=== PATIENT | male | born 1970 | race Two or more races ===

== ENCOUNTER 2022-09-19 08:58 | Inpatient (IN) | payer MEDICAID ==
[~2022-09-19] VITALS: Ht 175.3 cm; Wt 96.3 kg
[2022-09-19] MEDS ORDERED: FOLIC ACID 1 MG TAB PO ONE (09:45)
[2022-09-19] MEDS ORDERED: THIAMINE 100mg/ml INJ (200mg/2ml VIAL) IV ONE (09:45)
[2022-09-19] MEDS ORDERED: chlordiazePOXIDE HCL 25 MG CAP PO ONE (09:45)
[2022-09-19] MEDS ORDERED: LORazepam 2MG/ML-1ML VIAL IV ONE (09:45)
[2022-09-19 09:50] LABS: Basophils # (auto) 0.1 10 ^3/uL (0-0.2); Basophils % (auto) 1.3 % (0.0-2.0); Eosinophils # (auto) 0.1 10 ^3/uL (0-0.8); Eosinophils % (auto) 0.8 % (0.0-7.0); Hematocrit 48.3 % (41.0-53.0); Hemoglobin 16.8 g/dL (13.5-17.5); Lymphocytes # (auto) 1.1 10 ^3/uL (0.4-5.4); Lymphocytes % (auto) 16.4 % (10.0-50.0); Mean Corpuscular Hemoglobin 32.9 pg (28.0-32.0); Mean Corpuscular Hgb Conc. 34.7 g/dL (32.0-36.0); Mean Corpuscular Volume 94.9 fL (80.0-100.0); Monocytes # (auto) 0.7 10 ^3/uL (0-1.3); Monocytes % (auto) 10.4 % (0.0-12.0); Neutrophils % (auto) 71.1 % (37.0-80.0); Red Blood Cells 5.09 10^6/uL (4.5-5.90); Red Cell Distribution Width 13.6 % (11.8-14.3)
[2022-09-19] MEDS ORDERED: levETIRAcetam 500 MG TAB PO ONE (10:00)
[2022-09-19 10:30] LABS: Albumin 4.7 g/dL (3.4-5.0); Anion Gap 7 (5-15); Blood Alcohol < 3.0 mg/dL (0-5); Blood Urea Nitrogen 5 mg/dL (7-18); Calcium 8.7 mg/dL (8.5-10.1); Carbon Dioxide 27 mmol/L (21-32); Chloride 96 mmol/L (98-107); Glucose 172 mg/dL (74-106); Potassium 3.1 mmol/L (3.5-5.1); Sodium 130 mmol/L (136-145)
[2022-09-19 10:34] LABS: Alanine Aminotransferase 55 U/L (16-61); Alkaline Phosphatase 127 U/L (45-117); Aspartate Aminotransferase 76 U/L (15-37); Bilirubin, Total 2.2 mg/dL (0.2-1.0); GFR African American 124 mL/min; GFR Non-African American 103 mL/min; Total Protein 8.3 g/dL (6.4-8.2)
[2022-09-19] MEDS ORDERED: POTASSIUM CHL 20 Meq TABLET PO ONE (10:45)
[2022-09-19 10:49] LABS: Magnesium 1.6 mg/dL (1.6-2.6); Phosphorus 1.2 mg/dL (2.5-4.90)
[2022-09-19] MEDS ORDERED: NITROGLYCERIN 0.4 MG SL TAB SL PRN (11:45)
[2022-09-19] MEDS ORDERED: LORazepam 2MG/ML-1ML VIAL IV PRN (11:45)
[2022-09-19] MEDS ORDERED: ACETAMINOPHEN 325 MG TAB PO PRN (11:45)
[2022-09-19] MEDS ORDERED: MORPHINE SULFATE INJ 2 MG/ml SYRG IV PRN (11:45)
[2022-09-19] MEDS: SODIUM CHLORIDE 0.9% 1,000 ML IV SCH ×3 (12:58→23:06)
[2022-09-19] MEDS: LACTATED RINGER'S 1,000 ML IV ONE ×2 (12:58→13:08)
[2022-09-19] MEDS ORDERED: METOPROLOL TARTRATE 25 MG TAB PO ONE (13:00)
[2022-09-19] MEDS: hydrALAZINE HCL 20 MG/ML VL IV PRN (16:29)
[2022-09-19] MEDS ORDERED: hydrALAZINE HCL 20 MG/ML VL IV ONE (18:00)
[2022-09-20 06:46] LABS: Basophils # (auto) 0.1 10 ^3/uL (0-0.2); Basophils % (auto) 0.8 % (0.0-2.0); Eosinophils # (auto) 0.1 10 ^3/uL (0-0.8); Eosinophils % (auto) 0.9 % (0.0-7.0); Hematocrit 46.2 % (41.0-53.0); Hemoglobin 16.2 g/dL (13.5-17.5); Lymphocytes # (auto) 2.2 10 ^3/uL (0.4-5.4); Lymphocytes % (auto) 22.8 % (10.0-50.0); Mean Corpuscular Hemoglobin 33.4 pg (28.0-32.0); Mean Corpuscular Hgb Conc. 35.1 g/dL (32.0-36.0); Mean Corpuscular Volume 95.2 fL (80.0-100.0); Monocytes # (auto) 1.1 10 ^3/uL (0-1.3); Monocytes % (auto) 11.4 % (0.0-12.0); Neutrophils # (auto) 6.1 10 ^3/uL (1.6-8.6); Neutrophils % (auto) 64.1 % (37.0-80.0); Nucleated Red Blood Cells % 0.1 %; Red Blood Cells 4.85 10^6/uL (4.5-5.90); Red Cell Distribution Width 13.4 % (11.8-14.3); White Blood Cell 9.6 10^3/uL (4.4-10.8)
[2022-09-20 07:12] LABS: Potassium 3.6 mmol/L (3.5-5.1)
[2022-09-20 07:18] LABS: Albumin 4.4 g/dL (3.4-5.0); BUN/Creatinine Ratio 5.3 (10.0-20.0); Bilirubin, Total 2.3 mg/dL (0.2-1.0); Calcium 8.9 mg/dL (8.5-10.1)
[2022-09-20] MEDS: SODIUM CHLORIDE 0.9% 1,000 ML IV SCH ×2 (08:45→18:02)
[2022-09-20] MEDS: amLODIPine BESYLATE 5 MG TAB PO SCH (09:32)
[2022-09-20] MEDS: ENOXAPARIN SOD 40 MG/0.4 ML SYRINGE SC SCH (09:37)
[2022-09-20] MEDS: THIAMINE HCL 100 MG TAB PO SCH (09:37)
[2022-09-20] MEDS: FOLIC ACID 1 MG TAB PO SCH (09:37)
[2022-09-20] MEDS: MULTIPLE VITAMIN TAB PO SCH (09:38)
[2022-09-20] MEDS ORDERED: LORazepam 2MG/ML-1ML VIAL IV PRN (19:30)
[2022-09-20] MEDS: hydrALAZINE HCL 20 MG/ML VL IV PRN (23:49)
[2022-09-21] MEDS: chlordiazePOXIDE HCL 25 MG CAP PO PRN ×2 (03:07→21:46)
[2022-09-21] MEDS ORDERED: LABETALOL HCL 5 MG/ML 4ML SYRINGE IV ONE ×2 (03:30→03:31)
[2022-09-21] MEDS: SODIUM CHLORIDE 0.9% 1,000 ML IV SCH ×3 (04:30→21:46)
[2022-09-21 04:38] VITALS: BP 193/110
[2022-09-21 05:00] VITALS: BP 193/113
[2022-09-21] MEDS ORDERED: dilTIAZem 25 MG/5 ML VIAL IV ONE (05:15)
[2022-09-21] MEDS ORDERED: dilTIAZem HCL 50 MG/10 ML VIAL IV ONE (05:42)
[2022-09-21 09:00] VITALS: BP_SYST 133; BP_SYST 150; BP_DIAS 117; BP_DIAS 81
[2022-09-21] MEDS: MULTIPLE VITAMIN TAB PO SCH (10:13)
[2022-09-21] MEDS: THIAMINE HCL 100 MG TAB PO SCH (10:13)
[2022-09-21] MEDS: FOLIC ACID 1 MG TAB PO SCH (10:14)
[2022-09-21] MEDS: amLODIPine BESYLATE 5 MG TAB PO SCH (10:16)
[2022-09-21] MEDS: ENOXAPARIN SOD 40 MG/0.4 ML SYRINGE SC SCH (10:16)
[2022-09-21 13:00] VITALS: BP 144/112
[2022-09-21 17:00] VITALS: BP 142/108
[2022-09-21 22:00] VITALS: BP 144/105
[2022-09-22 05:00] VITALS: BP 160/124
[2022-09-22] MEDS: hydrALAZINE HCL 20 MG/ML VL IV PRN (05:40)
[2022-09-22 09:00] VITALS: BP 147/100
[2022-09-22] MEDS: FOLIC ACID 1 MG TAB PO SCH (10:39)
[2022-09-22] MEDS: THIAMINE HCL 100 MG TAB PO SCH (10:39)
[2022-09-22] MEDS: amLODIPine BESYLATE 5 MG TAB PO SCH (10:40)
[2022-09-22] MEDS: MULTIPLE VITAMIN TAB PO SCH (10:40)
[2022-09-22] MEDS: chlordiazePOXIDE HCL 25 MG CAP PO PRN (10:40)
[2022-09-22] MEDS: ENOXAPARIN SOD 40 MG/0.4 ML SYRINGE SC SCH (10:41)
[2022-09-22] MEDS: SODIUM CHLORIDE 0.9% 1,000 ML IV SCH (10:43)
[2022-09-22] MEDS ORDERED: MULTTAB99 PO (10:57)
[2022-09-22] MEDS ORDERED: THIA100T10 PO (10:57)
[2022-09-22] MEDS ORDERED: FOLI-119 PO (10:57)
[2022-09-22] MEDS ORDERED: AML5T PO (10:57)
[2022-09-22] MEDS ORDERED: CHL25C PO (10:57)
[2022-09-22 12:45] VITALS: BP 158/118
[2022-09-22 14:56] VITALS: BP 147/100
== END 2022-09-22 17:02 | disposition home or self-care (01) | DRG 53 ==
LOC: ER 08:58 → TELE 11:35 → TELE-WESTW 09-21 04:00
PROVIDERS: ADMIT Nurse Practitioner Family; ATTEND Internal Medicine
DX: G40.89 Other seizures (principal); E87.6 Hypokalemia; F10.239 Alcohol dependence with withdrawal, unspecified; F10.229 Alcohol dependence with intoxication, unspecified; F17.200 Nicotine dependence, unspecified, uncomplicated; R74.01 Elevation of levels of liver transaminase levels; I10 Essential (primary) hypertension; K08.9 Disorder of teeth and supporting structures, unspecified; Z83.3 Family history of diabetes mellitus
CPT/HCPCS: 36415; 70450; 70486; 70551; 71045; 72125; 76705; 80053; 80320; 82542; 82962; 83036; 83690; 83735; 83880; 84100; 84132; 84484; 85025; 95819; 96361; 96365; 96372; 96375; G0378; J3490; J7060

== ENCOUNTER 2023-04-27 19:39 | Emergency (ER) | payer MEDICAID ==
[~2023-04-27] VITALS: Ht 172.7 cm; Wt 86.0 kg
[~2023-04-27 19:39] MED LIST: AML5T PO; CHL25C PO; FOLI-119 PO; MULTTAB99 PO; THIA100T10 PO
[2023-04-27] MEDS ORDERED: ACCU-CHEK COMFORT CURVE STRIP VI ONE (20:00)
[2023-04-27 20:58] LABS: Basophils # (auto) 0.1 10 ^3/uL (0-0.2); Basophils % (auto) 0.9 % (0.0-2.0); Eosinophils # (auto) 0 10 ^3/uL (0-0.8); Eosinophils % (auto) 0.1 % (0.0-7.0); Hemoglobin 15.5 g/dL (13.5-17.5); Lymphocytes # (auto) 1.3 10 ^3/uL (0.4-5.4); Lymphocytes % (auto) 12.8 % (10.0-50.0); Mean Corpuscular Hemoglobin 31.5 pg (28.0-32.0); Mean Corpuscular Hgb Conc. 32.9 g/dL (32.0-36.0); Mean Corpuscular Volume 95.8 fL (80.0-100.0); Monocytes # (auto) 0.9 10 ^3/uL (0-1.3); Monocytes % (auto) 8.9 % (0.0-12.0); Neutrophils % (auto) 77.3 % (37.0-80.0); Nucleated Red Blood Cells % 0.1 %; Red Blood Cells 4.91 10^6/uL (4.5-5.90); Red Cell Distribution Width 13.6 % (11.8-14.3); White Blood Cell 10.3 10^3/uL (4.4-10.8)
[2023-04-27 21:18] LABS: Alanine Aminotransferase 42 U/L (7-40); Alkaline Phosphatase 111 U/L (46-116); Anion Gap 21 (5-15); Aspartate Aminotransferase 57 U/L (13-40); BUN/Creatinine Ratio 11.5 (10.0-20.0); Blood Urea Nitrogen 10 mg/dL (9-23); Calcium 9.6 mg/dL (8.5-10.1); Carbon Dioxide 18 mmol/L (20-30); Chloride 95 mmol/L (98-107); Glucose 181 mg/dL (74-106); Potassium 3.8 mmol/L (3.5-5.1); Sodium 134 mmol/L (136-145)
[2023-04-27 21:19] LABS: Bilirubin, Total 0.9 mg/dL (0.2-1.0); Total Protein 7.7 g/dL (5.7-8.2)
[2023-04-27] MEDS ORDERED: ONDANSETRON HCL 4 MG/2 ML VIAL IV ONE (22:30)
[2023-04-27] MEDS ORDERED: levETIRAcetam 500 MG TAB PO ONE (22:30)
[2023-04-27] MEDS ORDERED: LORazepam 2MG/ML-1ML VIAL ONE (22:45)
[2023-04-27] MEDS ORDERED: levETIRAcetam 1000 mg/100ml 100 ML IV ONE ×3 (22:48→23:00)
[2023-04-27] MEDS ORDERED: diphenhdrAMINE HCL 50 MG/1 ML VL ONE (22:54)
[2023-04-27] MEDS ORDERED: HALOPERIDOL LACTATE 5 MG/ML INJ VIAL ONE ×2 (22:56→23:41)
[2023-04-27 23:00] VITALS: PULSE 139; RESP 22; O2SAT 98
[2023-04-27] MEDS ORDERED: LORazepam 2MG/ML-1ML VIAL IV ONE (23:00)
[2023-04-27] MEDS ORDERED: diphenhdrAMINE HCL 50 MG/1 ML VL IV ONE ×2 (23:00)
[2023-04-27] MEDS ORDERED: SODIUM CHLORIDE 0.9% 1,000 ML IV ONE (23:15)
[2023-04-27] MEDS ORDERED: HALOPERIDOL LACTATE 5 MG/ML INJ VIAL IM ONE (23:45)
[2023-04-27] MEDS ORDERED: hydrALAZINE HCL 20 MG/ML VL IV ONE (23:45)
[2023-04-27] MEDS ORDERED: MIDAZOLAM HCL 5 MG/ML-1ML VIAL ONE (23:53)
[2023-04-28] MEDS ORDERED: MIDAZOLAM HCL 5 MG/ML-1ML VIAL IV ONE
[2023-04-28] MEDS: THIAMINE 100mg/ml INJ (200mg/2ml VIAL) IV ONE ×2 (00:16→00:31)
[2023-04-28 01:44] LABS: Urine Bacteria NONE SEEN /hpf (None Seen); Urine Blood 2+ /uL (Negative); Urine Clarity Clear (Clear); Urine Color Colorless (Yellow); Urine Hyaline Cast FEW /lpf (0 - 2); Urine Protein, UAD 1+ (Negative); Urine Specific Gravity 1.011 (1.001-1.035); Urine Urobilinogen Normal (Negative); Urine WBC 2 /hpf (0 - 3); Urine pH 5.5 (5.0-8.0)
[2023-04-28] MEDS ORDERED: hydrALAZINE HCL 20 MG/ML VL IV ONE (01:45)
[2023-04-28 01:57] LABS: Amphetamine Screen, Urine Neg (NEGATIVE); Benzodiazephine Screen, Urine Neg (NEGATIVE)
[2023-04-28 01:58] LABS: Barbiturate Scree,Urine Neg (NEGATIVE); Cannabinoid Screen, Urine Pos (NEGATIVE); Cocaine Screen, Urine Neg (NEGATIVE); Opiate Scree,Urine Neg (NEGATIVE); Phencyclidine Screen, Urine Neg (NEGATIVE)
[2023-04-28] MEDS ORDERED: LORazepam 2MG/ML-1ML VIAL IV ONE ×2 (03:30→10:30)
[2023-04-28 07:52] VITALS: PULSE 113; RESP 17; O2SAT 100
[2023-04-28] MEDS ORDERED: LABETALOL HCL 5 MG/ML 4ML SYRINGE IV ONE ×2 (11:12→11:15)
[2023-04-28 12:30] VITALS: BP 156/97; PULSE 98; RESP 21; TEMP 98.3; O2SAT 99
[2023-04-28] MEDS ORDERED: FOLIC ACID 1 MG, MAGNESIUM SULF SDV 50% 8 MEQ, MULTIPLE VITAMIN 10 ML, THIAMINE INJ 100... INJ SCH ×5 (18:00)
== END 2023-04-28 12:35 | disposition short-term general hospital (02) ==
LOC: EDUNIT# 19:39 → ER 19:39 → EDBD 19:39 → ER 04-28 12:35
DX: G40.89 Other seizures (principal); I16.0 Hypertensive urgency; F10.129 Alcohol abuse with intoxication, unspecified; Y90.0 Blood alcohol level of less than 20 mg/100 ml
CPT/HCPCS: 36415; 51701; 70450; 80053; 80307; 80320; 81001; 83880; 84484; 85025; 93005; 96365; 96366; 96367; 96372; 96375; 96376; 99285; J1200; J1630; J1953; J2060; J2250; J7030